=== PATIENT | male | born 1970 | race Caucasian/White ===

== ENCOUNTER 2016-08-26 18:19 | Observation (INO) ==
[2016-08-26] MEDS ORDERED: 0.9 % Sodium Chloride 500 ML IVC ONE (18:22)
--- NOTE | 2016-08-26 18:25 | Emergency Department Note ---
Disposition Clinical Impression: Syncope Qualifiers: Syncope type: unspecified Qualified Code(s): R55 - Syncope and collapse Disposition: Admitted As Inpatient Referrals: NO,PCP [Non-Partnered Physician] - Forms: ED Satisfaction Letter Time of Disposition: 20:41 Syncope HPI - General Chief Complaint: ED Syncope Stated Complaint: syncopal episode Time Seen by Provider: 08/26/16 18:24 Source: patient Mode of arrival: ambulatory Limitations: no limitations Nursing Notes Reviewed: Yes Vital Signs Reviewed: Yes - History of Present Illness HPI Narrative: Patient is a 46-year-old male with past medical history of COPD, chronic low back pain, developmental delay due to rubella infection as a child. He presents today via EMS due to 2 episodes of syncope prior to arrival. EMS states the bystanders witnessed this event and so the patient was unconscious for about 1 minute. Upon awakening, he was having some mild tremors in upper and lower extremity. On presentation, the patient states they he is asymptomatic currently. Denies any chest pain, shortness of breath, belly pain , nausea, vomiting, lightheadedness, dizziness. Denies any injuries when he fell. Denies any neck pain or headache. He states that before he passed out, he just felt weak. One episode occurred when going from sitting to standing, but the second episode was just while patient was standing. - Related Data Home Medications Medication Instructions Recorded Confirmed Aspirin [Adult Low Dose Aspirin EC] 81 mg PO DAILY 10/12/15 06/05/16 Clopidogrel [Plavix] 75 mg PO DAILY 10/12/15 06/05/16 Levothyroxine Sodium [Tirosint] 125 mcg PO DAILY 10/12/15 06/05/16 Metoprolol XL (24 HR) Succ [Toprol 25 mg PO DAILY 10/12/15 06/05/16 Xl] Nitroglycerin 0.4 mg SL Q5MIN PRN 10/12/15 06/05/16 RisperiDONE [Risperdal] 1 mg PO DAILY 10/12/15 06/05/16 Previous Rx's Medication Instructions Recorded Aripiprazole [Abilify] 15 mg PO DAILY #30 tablet 06/05/16 Atorvastatin Calcium [Lipitor] 80 mg PO HS #30 tab 06/05/16 Isosorbide MONOnitrate (24 HR) 60 mg PO DAILY #60 tab.er.24h 06/05/16 [Imdur] Ranolazine [Ranexa] 500 mg PO BID #60 tab.er.12h 06/05/16 Tizanidine HCl [Zanaflex] 4 mg PO Q8H #90 capsule 06/05/16 Allergies Allergy/AdvReac Type Severity Reaction Status Date / Time tramadol [From Ultram] AdvReac Nausea Verified 10/03/15 10:16 Constitutional: Denies: fever Cardiovascular: Denies: chest pain, palpitations Respiratory: Denies: cough, dyspnea, wheezes, hemoptysis Gastrointestinal: Denies: abdominal pain, nausea, vomiting, diarrhea, constipation Musculoskeletal: Reports: back pain. Denies: neck pain Integumentary: Denies: rash Neurological: Denies: headache, weakness, numbness, paresthesias Past Medical History - Past Medical History Attestation: Yes The following information was validated with the patient. Source: patient Medical history: Reports: coronary artery disease, kidney stones, renal disease Psychiatric history: Reports: bipolar, depression - Social History Smoking Status: Current every day smoker Smokeless Tobacco Status: No Alcohol use: Reports: none Drug use: Reports: marijuana Physical Exam - General Limitations: other (developmental delay) - Head Head exam: atraumatic, normocephalic, normal inspection - Eye Eye exam: Present: normal appearance, PERRL, EOMI - ENT ENT exam: normal exam, normal oropharynx, mucous membranes moist - Neck Neck exam: Present: normal inspection, full ROM, trachea midline. Absent: tenderness, meningismus - Chest Chest inspection: Present: normal inspection, symmetric chest wall rise - Respiratory Respiratory exam: Present: wheezes (Bilateral LL) - Cardiovascular Cardiovascular exam: Present: regular rate, normal rhythm, normal heart sounds - Abdominal Exam Abdominal exam: Present: soft, Non-Tender. Absent: tenderness, distention, guarding, rebound, rigidity - Extremities Exam Extremities exam: Present: normal inspection, full ROM. Absent: tenderness, pedal edema - Back Exam Back exam: Present: normal inspection, full ROM. Absent: tenderness - Neurological Exam Neurological exam: Present: alert, oriented X3, CN II-XII intact. Absent: motor sensory deficit - Psychiatric Psychiatric exam: Present: normal affect, normal mood - Skin Skin exam: Present: warm, dry, intact, normal color Course Course Narrative: Physical exam benign. Patient is developmentally delayed. He is not able to answer with full accuracy although review of system and past medical history questions. We will obtain head CT, basic blood work, EKG, troponin, CT of the head. Due to 2 episodes of syncope within a short limited time, we will likely admit for further evaluation. 20:06 d-dimer negative. Troponin negative. CBC and BMP not concerning. Chest x-ray negative for any acute cardiopulmonary pulmonary process. CT the head negative for any acute intracranial abnormality. Patient was reassessed, he is still asymptomatic at this point. BP is 140s/80s. Due to 2 episodes of syncope within a short period of time, we will admit the patient for further observation, cardiac monitoring, possible discussion of carotid duplex for further evaluation. Vital Signs Temperature 98.1 F 08/26/16 18:20 Pulse Rate 80 08/26/16 18:20 Respiratory Rate 18 08/26/16 18:20 Blood Pressure 185/105 08/26/16 18:20 O2 Sat by Pulse Oximetry 92 L 08/26/16 18:20 Temperature 98.1 F 08/26/16 18:20 Pulse Rate 65 08/26/16 20:23 Respiratory Rate 18 08/26/16 20:23 Blood Pressure 155/64 08/26/16 20:23 O2 Sat by Pulse Oximetry 92 L 08/26/16 20:23 Oxygen Delivery Oxygen Delivery Room Air Syncope - [facility] Narrative Medical decision making narrative: Physical exam benign. Patient is developmentally delayed. He is not able to answer with full accuracy although review of system and past medical history questions. We will obtain head CT, basic blood work, EKG, troponin, CT of the head. Due to 2 episodes of syncope within a short limited time, we will likely admit for further evaluation. 20:06 d-dimer negative. Troponin negative. CBC and BMP not concerning. Chest x-ray negative for any acute cardiopulmonary pulmonary process. CT the head negative for any acute intracranial abnormality. Patient was reassessed, he is still asymptomatic at this point. Due to 2 episodes of syncope within a short period of time, we will admit the patient for further observation, cardiac monitoring, possible discussion of carotid duplex for further evaluation. - Medical Records Medical records reviewed: Yes I reviewed the patient's medical records. - Lab Data Lab results reviewed: Yes I reviewed the patient's lab results. Result diagrams: 08/26/16 19:29 08/26/16 19:29 Lab Results 08/26/16 08/26/16 08/26/16 Range/Units 19:29 19:29 19:29 WBC 9.6 (4.3-11.1) K/mcL RBC 5.35 (4.19-5.50) M/mcL Hgb 14.6 (12.9-16.9) g/dL Hct 46.2 (37.5-50.1) % MCV 86.4 (83.0-100.0) fL MCH 27.3 L (28.0-33.3) pg MCHC 31.6 (31.6-35.5) g/dL RDW 15.1 H (11.5-14.5) % Plt Count 176 (140-400) K/mcL MPV 10.7 (9.4-12.4) fL Immature Gran % 0.7 (0-4) % Seg Neutrophils % 76.8 % Lymphocytes % 15.7 % Monocytes % 6.4 % Eosinophils % 0.0 % Basophils % 0.4 % Neutrophils # 7.3 (1.6-8.9) K/mcL Lymphocytes # 1.5 (0.6-4.6) K/mcL Monocytes # 0.6 (0.0-1.3) K/mcL Eosinophils # 0.0 (0.0-0.6) K/mcL Basophils # 0.0 (0.0-0.2) K/mcL Immature Plt Fraction 4.4 (1.1-6.1) % PT 12.0 (9.4-12.1) Seconds INR 1.1 APTT 33.7 (26.0-36.0) Seconds D-Dimer 306 (0-500) ng/mLFEU Sodium 141 (136-145) mEq/L Potassium 4.1 (3.5-4.5) mEq/L Chloride 105 (98-109) mEq/L Carbon Dioxide 28 (19-29) mEq/L BUN 9 (8-26) mg/dL Creatinine 1.08 (0.72-1.25) mg/dL Est GFR ( Amer) > 60 (> 60) Est GFR (Non-Af Amer) > 60 (> 60) BUN/Creatinine Ratio 8 (6-26) Glucose 94 (70-99) mg/dL Calculated Osmolality 290 (280-300) Calcium 8.6 (8.6-10.8) mg/dL Total Bilirubin 0.5 (0.2-1.2) mg/dL AST 16 (5-34) Units/L ALT 14 (0-55) Units/L Alkaline Phosphatase 72 (38-126) Units/L Troponin I (0-0.03) ng/mL B-Natriuretic Peptide (0-100) pg/mL Serum Total Protein 6.6 (6.0-8.3) g/dL Albumin 3.4 L (3.5-5.0) g/dL Globulin 3.2 (2.4-3.5) g/dL Albumin/Globulin Ratio 1.1 (1.1-2.2) 08/26/16 08/26/16 Range/Units 19:29 19:29 WBC (4.3-11.1) K/mcL RBC (4.19-5.50) M/mcL Hgb (12.9-16.9) g/dL Hct (37.5-50.1) % MCV (83.0-100.0) fL MCH (28.0-33.3) pg MCHC (31.6-35.5) g/dL RDW (11.5-14.5) % Plt Count (140-400) K/mcL MPV (9.4-12.4) fL Immature Gran % (0-4) % Seg Neutrophils % % Lymphocytes % % Monocytes % % Eosinophils % % Basophils % % Neutrophils # (1.6-8.9) K/mcL Lymphocytes # (0.6-4.6) K/mcL Monocytes # (0.0-1.3) K/mcL Eosinophils # (0.0-0.6) K/mcL Basophils # (0.0-0.2) K/mcL Immature Plt Fraction (1.1-6.1) % PT (9.4-12.1) Seconds INR APTT (26.0-36.0) Seconds D-Dimer (0-500) ng/mLFEU Sodium (136-145) mEq/L Potassium (3.5-4.5) mEq/L Chloride (98-109) mEq/L Carbon Dioxide (19-29) mEq/L BUN (8-26) mg/dL Creatinine (0.72-1.25) mg/dL Est GFR ( Amer) (> 60) Est GFR (Non-Af Amer) (> 60) BUN/Creatinine Ratio (6-26) Glucose (70-99) mg/dL Calculated Osmolality (280-300) Calcium (8.6-10.8) mg/dL Total Bilirubin (0.2-1.2) mg/dL AST (5-34) Units/L ALT (0-55) Units/L Alkaline Phosphatase (38-126) Units/L Troponin I 0.00 (0-0.03) ng/mL B-Natriuretic Peptide 26 (0-100) pg/mL Serum Total Protein (6.0-8.3) g/dL Albumin (3.5-5.0) g/dL Globulin (2.4-3.5) g/dL Albumin/Globulin Ratio (1.1-2.2) - Radiology Data Radiology results reviewed: Yes I reviewed the patient's radiology results. Chest X-Ray 08/26/16 18:22 IMPRESSION: 1. No active pulmonary disease. D/ / Tato Avelar MD / Tato Avelar MD Interpreting Provider: Tato Avelar MD Head CT 08/26/16 18:23 IMPRESSION: No acute intracranial abnormality. D/ / Jef Moore MD / Jef Moore MD Interpreting Provider: Jef Moore MD - EKG Data EKG attestation: Yes I reviewed and interpreted this EKG. EKG results narrative: 08/26/16 at 18:25. EKG shows normal sinus rhythm. Normal axis. Rate 75. QTC 440. QRS 101. No acute ST elevation or depression. No acute changes from previous EKG on 06/05/16 S.B.A.R. - S.B.A.R. Situation: Demographics, MOA Background: Presenting Complaint, Relevant PMH, Meds, & Allergies Assessment: Vital Signs, Course and respsone to treatment, Exam Concerns, Patient/Family Expectation, Pertinant Lab Results, Outstanding Labs Recommendation: Barrier(s) to disposition, Recommendation based on pending studies, treatments, or consults Luke Report Given to: Dr. Talon Butler Repor Time: 20:41 Attestation Statement - Attestation Attestation: Patient was seen with resident physician. I reviewed the history, physical, assessment and plan, and agree with the findings. I also personally evaluated this patient and had [id number] time with this patient. 46-year-old male presents to the emergency department with 2 syncopal episodes. Second one was witnessed by some bystanders at the [facility] where he lives. According to EMS he was out for approximately 1 minute. It was not clear if he fell from a standing position or not. Patient himself states he does not really remember what happened. He has not had any chest pain or shortness of breath. And denies symptoms at this time. Past medical history includes some development delay and chronic back pain. There is no cardiac history that we can ascertain. On examination ENT is normocephalic atraumatic. Heart is normal. Lungs some mild wheezing throughout. Abdomen is soft and nontender. Extremities are unremarkable. We will do a syncopal workup on this patient and admit it concerning that he said 2 syncopal episodes in rapid succession. A D stick was done via EMS and it was over 100. Patient himself is asymptomatic at the time of arrival. Workup was essentially negative, patient remained hemodynamically stable, but will need to admit for further evaluation and treatment as well as cardiac monitoring for his syncopal episodes. I agree with the resident physician assessment and plan.
[2016-08-26 19:36] LABS: Basophils % 0.4 %; Hematocrit 46.2 % (37.5-50.1); Hemoglobin 14.6 g/dL (12.9-16.9); Immature Granulocytes % 0.7 % (0-4); Immature Platelets 4.4 % (1.1-6.1); Lymphocytes # 1.5 K/mcL (0.6-4.6); Lymphocytes % 15.7 %; Mean Corpuscular HGB Conc 31.6 g/dL (31.6-35.5); Mean Corpuscular Hemoglobin 27.3 pg (28.0-33.3); Mean Corpuscular Volume 86.4 fL (83.0-100.0); Mean Platelet Volume 10.7 fL (9.4-12.4); Monocytes # 0.6 K/mcL (0.0-1.3); Monocytes % 6.4 %; Neutrophils # 7.3 K/mcL (1.6-8.9); Platelet Count 176 K/mcL (140-400); Red Blood Count 5.35 M/mcL (4.19-5.50); Red Cell Distribution Width 15.1 % (11.5-14.5); Segmented Neutrophils % 76.8 %
[2016-08-26 19:43] LABS: INR 1.1
[2016-08-26 19:46] LABS: Activated Partial Thrombo Time 33.7 Seconds (26.0-36.0)
[2016-08-26 19:50] LABS: Alanine Aminotransferase 14 Units/L (0-55); Albumin 3.4 g/dL (3.5-5.0); Albumin/Globulin Ratio 1.1 (1.1-2.2); Alkaline Phosphatase 72 Units/L (38-126); Aspartate Amino Transferase 16 Units/L (5-34); BUN/Creatinine Ratio 8 (6-26); Bilirubin,Total 0.5 mg/dL (0.2-1.2); Blood Urea Nitrogen 9 mg/dL (8-26); Calcium 8.6 mg/dL (8.6-10.8); Carbon Dioxide 28 mEq/L (19-29); Chloride 105 mEq/L (98-109); Globulin 3.2 g/dL (2.4-3.5); Glucose 94 mg/dL (70-99); Osmolality,Calculated 290 (280-300); Potassium 4.1 mEq/L (3.5-4.5); Sodium 141 mEq/L (136-145); Total Protein 6.6 g/dL (6.0-8.3); eGFR For African Americans > 60 (> 60); eGFR For Non-African Americans > 60 (> 60)
[2016-08-27] MEDS ORDERED: Acetaminophen 325 MG TABLET PO PRN (00:20)
[2016-08-27] MEDS ORDERED: Naloxone 0.4 MG/ML INJ IVP PRN (00:20)
[2016-08-27] MEDS ORDERED: tiZANidine 4 MG TABLET PO PRN (00:27)
--- NOTE | 2016-08-27 00:34 | Internal Med History&Physical ---
Date of Encounter: 08/27/16 Time of Encounter: 00:30 Assessment and Plan (1) Syncope Current visit: Yes Status: Acute 1. Will order ECHO, Carotid Dopplers, serial troponins, and EKG's. 2. If above negative, consider stress test and/or cardiology consult given recent history of RCA occlusion/known CAD. 3. Hold anti-psychotic medications for concerns of possible QT prolongation. Note: QTc on today's EKG is normal (440 ms). 4. Monitor glucose levels for possible hypoglycemia. Qualifiers: Syncope type: unspecified Qualified Code(s): R55 - Syncope and collapse (2) CAD (coronary artery disease) Current visit: No Status: Chronic 1. Continue home meds as appropriate. 2. Cycle troponins and order ECHO. 3. No history to suggest angina other than syncope. Qualifiers: Coronary Disease-Associated Artery/Lesion type: [place] artery [place] vs. transplanted heart: [place] heart Associated angina: with stable angina Qualified Code(s): I25.118 - Atherosclerotic heart disease of [place] coronary artery with other forms of angina pectoris (3) DVT prophylaxis Current visit: Yes Status: Acute 1. Heparin SQ. Internal Medicine - H&P: HPI Chief complaint: syncope Admitted From: Emergency Dept Plans for Post Hospital Care: Home History of present illness: Mr. Rios is a 46 year old male who presents to the ER today after having had 2 syncopal spells at home. One spell was reportedly witnessed by his friend and neighbor. Patient states he had some tremors but no reported seizure activity. Workup was negative in the ER, and he was admitted to the hospitalist service. Upon my assessment of the patient, he feels back to baseline. He denies any chest pain, shortness of breath, shakes, or jitters now. He denies any history of seizure disorder. He is not diabetic. He does have a history of 100% occlusion of his RCA. He had unsuccessful PTCA of his right coronary artery last spring. He denies any symptoms of angina since then, including today. Of note, he is on several antipsychotic medications which may put him at increased risk of QT prolongation. Past Med Surg Social Fam HX - Past Medical History Attestation: Yes The following information was validated with the patient. Source: patient, old records reviewed Medical history: coronary artery disease, kidney stones, renal disease Psychiatric history: bipolar, depression - Past Surgical History Surgical History: thyroidectomy, other (LHC with unsuccessful PTCA of RCA) - Social History Smoking Status: Current every day smoker Smokeless Tobacco Status: No Alcohol use: none Drug use: marijuana Current living situation: Home, With Family Activity Level: Independent ambulation Recent Out of Country Travel Within the Last 8 Weeks: No - Family History Mother Living Status: Cause of : cancer Hx Family Cancer: Yes (pancreatic) Hx Family Psychosocial Disorders: (Depression) Father Hx Family Endocrine Disorder: Yes (DM) Internal Medicine - H&P: Meds Aspirin [Adult Low Dose Aspirin EC] 81 mg PO DAILY 10/12/15 [History] Clopidogrel [Plavix] 75 mg PO DAILY 10/12/15 [History] Levothyroxine Sodium [Tirosint] 125 mcg PO DAILY 10/12/15 [History] Metoprolol XL (24 HR) Succ [Toprol Xl] 25 mg PO DAILY 10/12/15 [History] Nitroglycerin 0.4 mg SL Q5MIN PRN 10/12/15 [History] RisperiDONE [Risperdal] 1 mg PO DAILY 10/12/15 [History] Aripiprazole [Abilify] 15 mg PO DAILY #30 tablet 06/05/16 [Rx] Atorvastatin Calcium [Lipitor] 80 mg PO HS #30 tab 06/05/16 [Rx] Isosorbide MONOnitrate (24 HR) [Imdur] 60 mg PO DAILY #60 tab.er.24h 06/05/16 [ Rx] Ranolazine [Ranexa] 500 mg PO BID #60 tab.er.12h 06/05/16 [Rx] Tizanidine HCl [Zanaflex] 4 mg PO Q8H #90 capsule 06/05/16 [Rx] Allergies tramadol [From Ultram] Adverse Reaction (Verified 10/03/15 10:16) Nausea - Constitutional Constitutional: no chills, no fever(s) - EENT Eyes: no blurry vision, no change in vision Ears: no decreased hearing, no ear pain, no tinnitus Nose, mouth and throat: no nasal congestion, no sinus pressure, no sore throat - Cardiovascular Cardiovascular ROS IM: syncope, no chest pain, no dyspnea, no dyspnea on exertion, no edema, no lightheadedness, no orthopnea, no palpitations - Respiratory Respiratory: no cough, no hemoptysis, no dyspnea on exertion, no wheezing - Gastrointestinal Gastrointestinal: no diarrhea, no hematemesis, no hematochezia, no melena, no nausea, no vomiting - Genitourinary Genitourinary ROS male: no dysuria, no flank pain, no hematuria - Musculoskeletal Musculoskeletal ROS IM: back pain, no arthralgias - Integumentary Integumentary IM: no rash, no unusual bruising, no jaundice - Neurological Neurological ROS: no disequilibrium, no dizziness, no focal weakness, no frequent falls - Psychiatric Psychiatric: no anxiety, no depression - Endocrine Endocrine IM: no cold intolerance, no heat intolerance, no polydipsia, no polyuria - Hematologic/Lymphatic Hematologic/Lymphatic: no easy bruising, no lymphadenopathy - Allergic/Immunologic Allergic/Immunologic: no wheezing, no GI upset with certain foods - Constitutional Vitals: Temp Pulse Resp BP Pulse Ox 98.3 F 67 18 160/95 94 L 08/26/16 21:35 08/26/16 21:35 08/26/16 21:35 08/26/16 21:35 08/26/16 22:53 General appearance: Present: cooperative, A&O X 3, pleasant, no acute distress, answers questions appropriately - Head Head exam: Present: atraumatic, normal inspection - Expanded Head Exam Head exam expanded: Absent: abrasion, Shaikh's sign, contusion, general tenderness, hematoma - Eye Eye exam: Present: EOMI, normal appearance, PERRL. Absent: scleral icterus Pupils: Present: normal accommodation - ENT ENT exam: Present: mucous membranes moist, normal exam, normal oropharynx - Neck Neck exam general surgery: Present: full ROM, normal inspection, supple. Absent : lymphadenopathy, nuchal rigidity, thyromegaly - Expanded Neck Exam Neck exam: Absent: carotid bruit - Respiratory Respiratory exam: Present: CTAB. Absent: chest wall tenderness, rales, respiratory distress, rhonchi, wheezes - Cardiovascular Cardiovascular exam: Present: RRR, +S1, +S2, systolic murmur (grade 2). Absent : diastolic murmur - GI/Abdominal GI/Abdominal exam: Present: normal bowel sounds, soft. Absent: hepatomegaly, mass, splenomegaly, tenderness - Extremities Exam Extremities exam: Present: full ROM, normal capillary refill, warm. Absent: calf tenderness, joint swelling, pedal edema - Back Exam Back exam: Present: normal inspection. Absent: CVA tenderness (L), CVA tenderness (R) - Neurological Exam Neurological exam: Present: alert, CN II-XII intact, oriented X3, no focal deficits, strengths equal and symetr throughout - Psychiatric Psychiatric exam: Present: normal affect, normal mood - Skin Skin exam: Present: dry, warm. Absent: rash Internal Med - H&P Results - Labs CBC & Chem 7: 08/26/16 19:29 08/26/16 19:29 - EKG Data -: EKG Interpreted by Myself EKG shows normal: sinus rhythm Rate: normal - EKG Data Prior EKG available for review: yes When compared to previous EKG: there is no significant change EKG comments: 08/27/16 00:49 NSR; normal; unchanged - Diagnostic Studies Chest x-ray Status: image reviewed by me (negative)
[2016-08-27] MEDS: *HR* Heparin 5,000 UNIT/ML VIAL SQ SCH ×3 (01:07→18:38)
[2016-08-27] MEDS: 0.9 % Sodium Chloride 1,000 ML IVC SCH ×2 (01:07→12:54)
[2016-08-27 01:19] LABS: Basophils % 0.4 %; Hematocrit 46.5 % (37.5-50.1); Hemoglobin 14.7 g/dL (12.9-16.9); Immature Granulocytes % 0.7 % (0-4); Lymphocytes # 2.2 K/mcL (0.6-4.6); Lymphocytes % 23.4 %; Mean Corpuscular HGB Conc 31.6 g/dL (31.6-35.5); Mean Corpuscular Hemoglobin 27.1 pg (28.0-33.3); Mean Corpuscular Volume 85.6 fL (83.0-100.0); Mean Platelet Volume 10.8 fL (9.4-12.4); Monocytes # 0.7 K/mcL (0.0-1.3); Monocytes % 7.6 %; Neutrophils # 6.5 K/mcL (1.6-8.9); Platelet Count 175 K/mcL (140-400); Red Blood Count 5.43 M/mcL (4.19-5.50); Red Cell Distribution Width 15.2 % (11.5-14.5); Segmented Neutrophils % 67.9 %
[2016-08-27 01:35] LABS: Alanine Aminotransferase 13 Units/L (0-55); Albumin 3.1 g/dL (3.5-5.0); Alkaline Phosphatase 65 Units/L (38-126); Aspartate Amino Transferase 16 Units/L (5-34); BUN/Creatinine Ratio 10 (6-26); Bilirubin,Total 0.4 mg/dL (0.2-1.2); Blood Urea Nitrogen 10 mg/dL (8-26); Calcium 8.3 mg/dL (8.6-10.8); Carbon Dioxide 25 mEq/L (19-29); Chloride 109 mEq/L (98-109); Chol/HDL Ratio 2.6 (0-4.9); Cholesterol 86 mg/dL (< 200); Globulin 3.1 g/dL (2.4-3.5); Glucose 121 mg/dL (70-99); HDL Cholesterol 33 mg/dL (40-59); LDL Cholesterol,Calculated 31 mg/dL (0-99); Magnesium 1.8 mg/dL (1.6-2.6); Osmolality,Calculated 294 (280-300); Potassium 3.7 mEq/L (3.5-4.5); Sodium 142 mEq/L (136-145); Total Protein 6.2 g/dL (6.0-8.3); Triglycerides 108 mg/dL (< 150); eGFR For African Americans > 60 (> 60); eGFR For Non-African Americans > 60 (> 60)
[2016-08-27] MEDS: Ranolazine 500 MG TAB.ER.12H PO SCH ×2 (10:08→20:40)
[2016-08-27] MEDS: Isosorbide MONOnitrate (24 HR) 60 MG TAB.ER.24H PO SCH (10:08)
[2016-08-27] MEDS: Aspirin Enteric Coated 81 MG Tablet PO SCH (10:09)
--- NOTE | 2016-08-27 10:16 | Internal Med Progress Note ---
Date of Encounter: 08/27/16 Time of Encounter: 09:30 - Assessment and plan (1) Syncope Current Visit: Yes Status: Acute Assessment and plan: Patient alert and oriented 3 and asymptomatic on examination. Chest x-ray negative. Head CT negative. Carotid and echo still pending. Tox screen also pending. In discussing with the patient, he was started on Imdur couple months ago and his Ranexa dosage was increased last week. His syncopal episodes are likely medication related. We will also obtain orthostatic vital signs. We will bring cardiology on board for their appreciation of medications and any changes that may be indicated. ITS Impressions Chest X-Ray 08/26/16 18:22 IMPRESSION: 1. No active pulmonary disease. D/ / Tato Avelar MD / Tato Avelar MD Interpreting Provider: Tato Avelar MD Head CT 08/26/16 18:23 IMPRESSION: No acute intracranial abnormality. D/ / Jef Moore MD / Jef Moore MD Interpreting Provider: Jef Moore MD Qualifiers: Syncope type: unspecified Qualified Code(s): R55 - Syncope and collapse (2) Mental retardation Current Visit: Yes Status: Chronic Assessment and plan: Patient was able to understand plan of care and answer questions appropriately regarding his medication and recent changes to his medications. (3) S/P thyroidectomy Current Visit: Yes Status: Chronic Assessment and plan: TSH checked in June 2016, normal (4) DVT prophylaxis Current Visit: Yes Status: Acute Assessment and plan: Subcutaneous heparin (5) CAD (coronary artery disease) Current Visit: No Status: Chronic Assessment and plan: Patient is stating that he was recently started on Imdur a couple months ago and he also states he saw Dr. Headley last week who increased his Ranexa to "help with the clot in my leg." Patient's syncopal episodes are likely due to medication changes, will bring cardiology on board for medication titration at their discretion. Patient currently denies chest pain or shortness of breath. Qualifiers: Coronary Disease-Associated Artery/Lesion type: [place] artery [place] vs. transplanted heart: [place] heart Associated angina: with stable angina Qualified Code(s): I25.118 - Atherosclerotic heart disease of [place] coronary artery with other forms of angina pectoris (6) Obesity (BMI 30.0-34.9) Current Visit: No Status: Chronic - Subjective Interval history: Patient seen and examined. On examination, patient initially asleep and awaken easily to voice. Alert and oriented 3. Currently denies pain, shortness of breath, dizziness or lightheadedness. Patient stating he is eating well and denies concerns at this time. He does have several questions regarding his recent medication changes. - Constitutional Vitals: Temp Pulse Resp BP Pulse Ox 97.7 F 69 24 150/87 95 08/27/16 07:52 08/27/16 07:52 08/27/16 07:52 08/27/16 07:52 08/27/16 07:52 General appearance: Present: cooperative, A&O X 3, pleasant, no acute distress, answers questions appropriately - Head Head exam: Present: atraumatic, normocephalic - Eye Eye exam: Present: PERRL, conjuntiva pink, sclera anicteric Pupils: Present: PERRL - Neck Neck exam general surgery: Present: supple, trachea midline. Absent: lymphadenopathy - Respiratory Respiratory exam: Present: decreased breath sounds. Absent: accessory muscle use, rales, respiratory distress, rhonchi, wheezes - Cardiovascular Cardiovascular exam: Present: RRR, +S1, +S2. Absent: diastolic murmur, gallop, rubs, systolic murmur - GI/Abdominal GI/Abdominal exam: Present: normal bowel sounds, soft, no peritoneal signs. Absent: distended, tenderness - Extremities Exam Extremities exam: Present: warm, radial pulses palpable and symetrical. Absent : calf tenderness, cyanotic, pedal edema - Neurological Exam Neurological exam: Present: alert, CN II-XII intact, oriented X3, no focal deficits, strengths equal and symetr throughout. Absent: pronater drift, facial droop, speech deficit - Skin Skin exam: Present: dry, intact, pallor, warm Internal Medicine: Result - Labs CBC & Chem 7: 08/27/16 00:56 08/27/16 00:56 Labs: Short CBC 08/27/16 Range/Units 00:56 WBC 9.6 (4.3-11.1) K/mcL Hgb 14.7 (12.9-16.9) g/dL Hct 46.5 (37.5-50.1) % Plt Count 175 (140-400) K/mcL Neutrophils # 6.5 (1.6-8.9) K/mcL BMP 08/27/16 00:56 Sodium 142 Potassium 3.7 Chloride 109 Carbon Dioxide 25 BUN 10 Creatinine 1.02 Glucose 121 H Calcium 8.3 L Cardiac Enzymes 08/27/16 08/27/16 Range/Units 00:56 08:12 Troponin I 0.00 0.01 (0-0.03) ng/mL Liver Function 08/27/16 Range/Units 00:56 Total Bilirubin 0.4 (0.2-1.2) mg/dL AST 16 (5-34) Units/L ALT 13 (0-55) Units/L Alkaline Phosphatase 65 (38-126) Units/L Albumin 3.1 L (3.5-5.0) g/dL - ABG Interpretation ABG results: PT/INR, D-dimer PT 12.0 Seconds (9.4-12.1) 08/26/16 19:29 D-Dimer 306 ng/mLFEU (0-500) 08/26/16 19:29 Consult Discharge Plan - Plan Referrals: Marybeth Myers MD [Primary Care Provider] - 09/05/16 10:45 am
[2016-08-27 12:58] LABS: Bilirubin,Urine Negative (Negative); Blood,Urine Negative (Negative); Clarity,Urine Clear (Clear); Color,Urine Yellow (Yellow); Glucose,Urine (UA) Normal (Normal); Ketones,Urine Negative (Negative); Leukocyte Esterase,Urine Negative (Negative); Nitrite,Urine Negative (Negative); Protein,Urine Negative (Neg-Trace); Specific Gravity,Urine 1.008 (1.010-1.025); Urobilinogen,Urine Normal (Normal)
[2016-08-27 13:03] LABS: Amphetamine Screen,Urine Negative ng/mL (Cutoff=1000); Barbiturate Screen,Urine Negative ng/mL (Cutoff=200); Benzodiazepines Screen,Urine Negative ng/mL (Cutoff=200); Cannabinoid Screen,Urine Positive ng/mL (Cutoff = 50); Cocaine Screen,Urine Negative ng/mL (Cutoff= 300); Opiate Screen,Urine Negative ng/mL (Cutoff=300); Phencyclidine Screen,Urine Negative ng/mL (Cutoff=25)
--- NOTE | 2016-08-27 14:22 | Cardiology Consult Note ---
Date of Encounter: 08/27/16 Time of Encounter: 15:00 Assessment and Plan (1) Syncope Current Visit: Yes Status: Acute Per cardiology: -Patient with apparent syncopal episode at home. Patient states that he "passed out for a second." Patient states he has had episodes of dizziness in the past several months. -BPs have been stable with BPs since admission 120-150s systolic. 24 hour telemetry reviewed with no significant events noted. Orthostatic blood pressures obtained and are stable. -Echocardiogram ordered and has been completed, results are pending. -Carotid duplex ordered and has been completed, results are pending. -Further recommendations once testing has been resulted. Qualifiers: Syncope type: unspecified Qualified Code(s): R55 - Syncope and collapse (2) History of coronary artery disease Current Visit: Yes Status: Chronic Per cardiology: -Patient known history of CAD with previous stenting. Cardiac catheterization showed RCA 100% RN PSYCH with unsuccessful PTCA, LAD mild disease, 1st diagonal mild disease, mid circumflex 50-60% stenosis. Patient denies chest pain. Patient states compliance with plavix, aspirin, ranexa, imdur. Patient states he does not tolerate beta roberto and susanna inhibitor. Patient states he has tried several varieties in the past, but does not tolerate them. -No further ischemic evaluation needed at this time due to chest pain free and troponins negative x3. -Further recommendations once echocardiogram resulted. (3) Smoking Current Visit: Yes Status: Chronic Per cardiology: -Patient is a known smoker of a pack per day for 30 years. -Smoking cessation given. Discussion w patient/family: The assessment and plan as outlined above was discussed with the patient who expressed understanding and agreement. All questions were answered. Thank you for involving us in the care of your patient. Please call with any questions. Patient was discussed and reviewed with Dr.John Arroyo. History of Present Illness Consult date: 08/27/16 Requesting physician: Chely Rodriguez Consult reason: syncope Chief complaint: syncope History of present illness: Mr. Rios is a 46 year old male who presented to the ER with apparent syncopal episode at home. Patient states he "passed out for a second." Patient states after episode he had to be helped to a chair by friends. Patient states he has been having episodes of dizziness for several months. Patient states he was recently placed on imdur 60mg PO daily by . Patient states since the admission of this medication, he has been feeling dizzy. Patient states he does not take his blood pressure at home, but when he comes to doctors appointments, his BP has been running 120-130 systolic and 60-70 diastolic. Past Med Surg Social Fam HX - Past Medical History Medical history: coronary artery disease, kidney stones, renal disease Psychiatric history: bipolar, depression - Past Surgical History Surgical History: thyroidectomy, other (LHC with unsuccessful PTCA of RCA) - Social History Smoking Status: Current every day smoker Smokeless Tobacco Status: No Alcohol use: none Drug use: marijuana - Family History Mother Living Status: Cause of : cancer Hx Family Cancer: Yes (pancreatic) Hx Family Psychosocial Disorders: (Depression) Father Hx Family Endocrine Disorder: Yes (DM) Medications and Allergies Aspirin [Adult Low Dose Aspirin EC] 81 mg PO DAILY 10/12/15 [History] Clopidogrel [Plavix] 75 mg PO DAILY 10/12/15 [History] Levothyroxine Sodium [Tirosint] 125 mcg PO DAILY 10/12/15 [History] Nitroglycerin 0.4 mg SL Q5MIN PRN 10/12/15 [History] RisperiDONE [Risperdal] 1 mg PO HS 10/12/15 [History] Aripiprazole [Abilify] 15 mg PO DAILY #30 tablet 06/05/16 [Rx] Atorvastatin Calcium [Lipitor] 80 mg PO HS #30 tab 06/05/16 [Rx] Isosorbide MONOnitrate (24 HR) [Imdur] 60 mg PO DAILY #60 tab.er.24h 06/05/16 [ Rx] Tizanidine HCl [Zanaflex] 4 mg PO Q8H #90 capsule 06/05/16 [Rx] Benztropine [Cogentin] 1 mg PO HS 08/27/16 [History] Ranitidine HCl [Heartburn Relief] 150 mg PO BID 08/27/16 [History] Ranolazine [Ranexa] 1,000 mg PO BID 08/27/16 [History] Allergies tramadol [From Ultram] Adverse Reaction (Verified 10/03/15 10:16) Nausea All Systems Review: A 10-system review of systems was performed and is negative for pertinent findings except as documented above in the HPI. - Cardiovascular Cardiovascular: syncope Physical Examination Vital Signs, Last 4 Hours Temp Pulse Pulse Pulse Pulse Resp BP 08/27/16 11:09 61 65 76 08/27/16 11:07 97.9 F 62 18 125/79 BP BP BP Pulse Ox 08/27/16 11:09 124/78 132/78 125/79 08/27/16 11:07 96 General: Conversant, No Apparent Distress HEENT: Atraumatic, Normocephaly, Mucus Membranes Moist Neck: No JVD, Normal carotid pulses Cardiac: Reg Rate and Rhythm, Normal S1 and S2, No Murmur Lungs: Normal Breath Sounds Neuro: Alert and responsive Abdomen: Soft, Non-Tender Skin: No rashes noted on visualized skin Extremities: No Clubbing, No Cyanosis, Other (mild non-pitting pedal edema noted to bilateral lower extremities. ) Results 08/27/16 00:56 08/27/16 00:56 Lab Results 08/27/16 08/27/16 08/27/16 00:56 00:56 00:56 WBC 9.6 Hgb 14.7 Hct 46.5 Plt Count 175 Sodium 142 Potassium 3.7 Chloride 109 Carbon Dioxide 25 BUN 10 Creatinine 1.02 Glucose 121 H Calcium 8.3 L Magnesium 1.8 Total Bilirubin 0.4 AST 16 ALT 13 Alkaline Phosphatase 65 Troponin I 0.00 08/27/16 08:12 WBC Hgb Hct Plt Count Sodium Potassium Chloride Carbon Dioxide BUN Creatinine Glucose Calcium Magnesium Total Bilirubin AST ALT Alkaline Phosphatase Troponin I 0.01 - Imaging and Cardiology Chest Xray: report reviewed Echo: pending Other Results: Carotid duplex pending. CT head reviewed. - EKG Interpretation EKG results cardiology: personally reviewed, normal ECG, sinus rhythm, other ( 24 hour telemetry reviewed with average HR 65. Lowest heart rate 42 at 0512. No significant events noted per telemetry.) Consult Discharge Plan - Plan Referrals: Marybeth Myers MD [Primary Care Provider] - 09/05/16 10:45 am
--- NOTE | 2016-08-27 15:37 | ECHO - Doppler Report ---
Echocardiogram Name: Kalia Rios Date of Study: 08/27/2016 Date: 1970 Ht: 63.0 in Medical Record#: [id number] Age: 46 Wt: 189.0 lb Gender: Male BSA: 1.89 Order #: [id number] Location: [facility] Room #: 3B45 Reading Physician: Marcie Barajas DO Pole Setter: Nikki Tracy RVT Ordering Physician: Bala Cardenas MD Primary Physician: Marybeth Myers MD Indications: Syncope Impressions: LVEF 60%. Normal left ventricular size and systolic function. There is evidence of mild diastolic dysfunction of the left ventricle. Normal right ventricular size and function. No significant valvular dysfunction. No pulmonary hypertension. Left Ventricular Wall Motion: Rest Echo Findings All wall segments showed normal motion. Findings: Study Quality * Technically adequate exam. ECG Findings * Normal sinus rhythm. Left Ventricle * Normal LV chamber size, wall thickness and function. * Mild left ventricular diastolic dysfunction. * LVEF 60%. Left Atrium * Normal left atrial size. Mitral Valve * Normal mitral valve structure. * No mitral stenosis. * No mitral regurgitation. Aortic Valve * No aortic regurgitation. * Aortic valve not well visualized. * No aortic stenosis. Tricuspid Valve * Tricuspid valve not well visualized. * No tricuspid regurgitation. * Estimated RA pressure is 3 mmHg. Pulmonic Valve * Pulmonic valve is not well visualized. * No pulmonic stenosis. * No pulmonic regurgitation. Pulmonary Artery * Pulmonary artery not well visualized. Right Ventricle * Normal right ventricular structure and function. Right Atrium * Normal right atrial size. Interatrial Septum * Lipomatous interatrial septum. IVC * Normal IVC dimensions and inspiratory collapse. Pericardium * There is no pericardial effusion present. Aorta * Not well visualized. History Hypercholesteremia Family History of CAD History of CAD/PTCA Myocardial Infarction Measurements: BP: 146/ 68 2D Normal Values IVSd: 1.00 cm 0.6 - 1.0 cm LVIDd: 5.00 cm 3.7 - 5.6 cm LVPWd: .70 cm 0.6 - 1.1 cm LVIDs: 4.00 cm 1.5 - 3.6 cm AO: 2.50 cm < 4.0 cm LA: 3.50 cm 2.0 - 4.0cm %FS: 20.00 cm >25 % LA volume: 59 Mitral Valve Peak E:.95 m/sec Peak A:1.15 m/sec E/A Ratio:0.8 Peak E' Lat Girish:8.68 cm/s Peak E' Med Girish:7.12 cm/s E/E' Lat Ratio:11 E/E' Med Ratio:13.4 Tricuspid Valve TV Regurg Peak Grad: 5.00mmHg TV Regurg Peak Girish: 1.11m/sec Updated by Marcie Barajas on 08/27/2016 3:29:53 PM electronically signed on 08/27/2016 3:31:46 PM with status of Final Wall Motion Gross: 1=Normal, 2=Hypokinesis, 3=Akinesis, 4=Dyskinesis, 5=Aneurysmal, 6=Hyperkinetic, X=Not Visualized (Blank)=Missing
--- NOTE | 2016-08-27 16:11 | Carotid Imaging Report ---
Carotid Duplex Patient Name:Kalia Rios Order Number:[id number] Procedure Date:08/27/2016 Date:1970Age:46 yrs Gender:Male Height: cm / inWeight:85.73 kg / 189.00 lb Lt BP:146 / 68 mmHg Rt.BP:144 / 72 mmHgHeart Rate: Location:[facility] Room #: #B45 Content Curator:Nikki Tracy RVT Referring MD:Bala Cardenas MD caretaker resort:Marybeth Myers MD Reading MD:Antonio Franks MD , FACS Primary Indications:Syncope Risk Factors Yes/No Hypercholesterolemia Yes Smoking Current Yes Family History Yes Impressions: Findings: Bilateral carotid systems have nonstenotic plaque. Findings Carotid Duplex: Right: There is nonstenotic plaque in the right bifurcation. There is smooth, heterogeneous calcified plaque. There is nonstenotic plaque in the right proximal internal carotid artery. There is smooth, heterogeneous calcified plaque. There is nonstenotic plaque in the right mid internal carotid artery. There is smooth heterogeneous plaque. There is nonstenotic plaque in the right eca. There is smooth, heterogeneous calcified plaque. Left: There is nonstenotic plaque in the left bifurcation. There is smooth, heterogeneous calcified plaque. There is nonstenotic plaque in the left proximal internal carotid artery. There is smooth homogeneous plaque. There is nonstenotic plaque in the left eca. There is smooth homogeneous plaque. Prior Study: No prior study available for comparison. Carotid Results Right PSV EDV Assessment Proximal CCA 119 16 Normal Mid CCA 120 14 Normal Distal CCA 114 16 Normal Bifurcation 99 13 Non Stenotic Plaque Proximal ICA 61 13 Non Stenotic Plaque Mid ICA 106 33 Non Stenotic Plaque Distal ICA 95 21 Normal ECA 155 21 Non Stenotic Plaque Vertebral Artery 68 13 Antegrade Flow Left PSV EDV Assessment Proximal CCA 132 14 Normal Mid CCA 117 26 Normal Distal CCA 105 16 Normal Bifurcation 80 18 Non Stenotic Plaque Proximal ICA 62 24 Non Stenotic Plaque Mid ICA 106 38 Normal Distal ICA 87 31 Normal ECA 116 87 Non Stenotic Plaque Vertebral Artery 43 11 Antegrade Flow Ratio's Right ICA/CCA Ratio: 0.08 ICA/CCA Values: 106/120 Left ICA/CCA Ratio: 0.90 ICA/CCA Values: 106/117 Updated by Antonio Franks MD, FACS on 08/27/2016 4:07:09 PM Antonio Franks MD electronically signed on 08/27/2016 4:07:44 PM with status of Final
--- NOTE | 2016-08-27 17:40 | Electrocardiograph Report ---
[address] [place], [place] [address] Test Date: 2016-08-26 Pat Name: Kalia Rios Department: 104 Room: 3B45 Gender: M Rn Document Improvement Specialist: : 1970 Requested By: Troy Stuart Order Number: [id number] Reading MD: Marcie Barajas Measurements Intervals [place] Rate: 75 P: 63 HI: 196 QRS: 41 QRSD: 101 T: 45 QT: 411 QTc: 440 Interpretive Statements SINUS RHYTHM Electronically Signed On 08-27-2016 17:38:41 EST by Marcie Barajas
[2016-08-28] MEDS: 0.9 % Sodium Chloride 1,000 ML IVC SCH (03:54)
[2016-08-28] MEDS: *HR* Heparin 5,000 UNIT/ML VIAL SQ SCH (06:26)
[2016-08-28 07:45] VITALS: BP 123/71
--- NOTE | 2016-08-28 08:54 | Cardiology Progress Note ---
Date of Encounter: 08/28/16 Time of Encounter: 08:30 Assessment and Plan (1) Syncope Current Visit: Yes Status: Acute Per cardiology: -Patient with apparent syncopal episode at home. Patient states that he "passed out for a second." Patient states he has had episodes of dizziness in the past several months. Patient denies dizziness since admission to [facility]. -BPs have been stable with BPs since admission 120-140s systolic. Orthostatic blood pressures obtained and are stable. -24 hour telemetry reviewed with episodes of nocturnal bradycardia. Lowest heart rate 34 at 0150. Longest pause 2.6 seconds. Average heart rate 63. Discussed and reviewed with Dr.John Arroyo. Patient states he has had a sleep study "several years ago." Patient states he was diagnosed with sleep apnea at that time, but he is non-compliant with CPAP due to comfort issues. Suspect nocturnal bradycardia due to sleep apnea. Recommend compliance with CPAP. -Echocardiogram 08/27/16 with mild diastolic dysfunction of left ventricle, no significant valvular dysfunction, no pulmonary hypertension, all wall segments with normal motion. -Carotid duplex 08/27/16 with nonstenotic plaque right bifurcation, nonstenotic plague right proximal ICA, nonstenotic plaque right mid ICA, nonstenotic plaque right ECA, nonstenotic plaque left bifurcation, nonstenotic plaque left proximal ICA, nonstenotic plaque left ECA. -Recommend patient compliance with CPAP. -Continue ranexa 500mg BID, as currently ordered by primary service. -If patient continues with dizziness, may consider decreasing patient's dose of imdur. -Discussed and reviewed with patient and Dr.John Arroyo. Cardiology will sign off. Re-consult as needed. Follow up coordinated with [facility]. Qualifiers: Syncope type: unspecified Qualified Code(s): R55 - Syncope and collapse (2) History of coronary artery disease Current Visit: Yes Status: Chronic Per cardiology: -Patient known history of CAD with previous stenting. 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 Patient denies chest pain. Patient states compliance with plavix, aspirin, ranexa, imdur. Patient states he does not tolerate beta roberto and susanna inhibitor. Patient states he has tried several varieties in the past, but does not tolerate them. -No further ischemic evaluation needed at this time due to chest pain free and troponins negative x3. (3) Smoking Current Visit: Yes Status: Chronic Per cardiology: -Patient is a known smoker of a pack per day for 30 years. Patient has no plans to quit smoking, but states he knows he needs to quit. -Smoking cessation given. Discussion w patient/family: The assessment and plan as outlined above was discussed with the patient who expressed understanding and agreement. All questions were answered. Thank you for involving us in the care of your patient. Please call with any questions. Patient was discussed and reviewed with Dr.John Arroyo. Subjective Principal diagnosis: Apparent Syncope Objective Vital Signs, Last 4 Hours Temp Pulse Resp BP Pulse Ox 08/28/16 07:00 97.8 F 89 16 123/71 92 L General: Conversant, No Apparent Distress HEENT: Atraumatic, Normocephaly, Mucus Membranes Moist Neck: No JVD Cardiac: Reg Rate and Rhythm, Normal S1 and S2, No Murmur Lungs: Other (Expiratory wheezing noted to bilateral lungs. ) Neuro: Alert and responsive Abdomen: Soft, Non-Tender Skin: No rashes noted on visualized skin Musculoskeletal: No Chest Wall Tenderness Extremities: No Clubbing, No Cyanosis, Normal Pulses, Other (Mild non-pitting pedal edema noted. ) Results 08/27/16 00:56 08/27/16 00:56 Lab Results 08/27/16 08:12 Troponin I 0.01 - Imaging and Cardiology Echo: report reviewed Other Results: CT head reviewed. Carotid duplex reviewed. - EKG Interpretation EKG results cardiology: normal ECG, sinus rhythm, other (24 hour telemetry noted with episodes of nocturnal bradycardia. Lowest heart rate 34 at 0150. Also had a 2.6 second pause at 0330. Average heart rate 63. Discussed with Dr.John Arroyo.) Consult Discharge Plan - Plan Referrals: Marybeth Myers MD [Primary Care Provider] - 09/05/16 10:45 am
--- NOTE | 2016-08-28 10:02 | Discharge Summary ---
Date of Encounter: 08/28/16 Time of Encounter: 09:00 - Discharge Diagnosis (1) Syncope Priority: Primary Status: Acute Comments: Patient remained asymptomatic throughout this admission. Syncopal workup negative. Suspect recent increase in his Ranexa dosage on 08/21/16 may have been the culprit. Changing back to his original dosing. Follow-up outpatient with cardiology 08/27/16 Patient alert and oriented 3 and asymptomatic on examination. Chest x-ray negative. Head CT negative. Carotid and echo still pending. Tox screen also pending. In discussing with the patient, he was started on Imdur couple months ago and his Ranexa dosage was increased last week. His syncopal episodes are likely medication related. We will also obtain orthostatic vital signs. We will bring cardiology on board for their appreciation of medications and any changes that may be indicated. ITS Impressions Chest X-Ray 08/26/16 18:22 IMPRESSION: 1. No active pulmonary disease. D/ / Tato Avelar MD / Tato Avelar MD Interpreting Provider: Tato Avelar MD Head CT 08/26/16 18:23 IMPRESSION: No acute intracranial abnormality. D/ / Jef Moore MD / Jef Moore MD Interpreting Provider: Jef Moore MD Qualifiers: Syncope type: unspecified Qualified Code(s): R55 - Syncope and collapse (2) Mental retardation Priority: Secondary Status: Chronic Comments: Patient was able to understand plan of care and answer questions appropriately regarding his medication and recent changes to his medications. (3) S/P thyroidectomy Priority: Secondary Status: Chronic Comments: TSH checked in June 2016, normal (4) DVT prophylaxis Priority: Primary Status: Acute Comments: Subcutaneous heparin while admitted (5) CAD (coronary artery disease) Priority: Secondary Status: Chronic Comments: Patient denied chest pain or shortness of breath throughout this admission Qualifiers: Coronary Disease-Associated Artery/Lesion type: [place] artery [place] vs. transplanted heart: [place] heart Associated angina: with stable angina Qualified Code(s): I25.118 - Atherosclerotic heart disease of [place] coronary artery with other forms of angina pectoris (6) Obesity (BMI 30.0-34.9) Priority: Secondary Status: Chronic - Discharge Medications Prescriptions: Ranolazine [Ranexa] 500 mg PO BID #60 tab.er.12h Home Medications: Aspirin [Adult Low Dose Aspirin EC] 81 mg PO DAILY 10/12/15 [History] Clopidogrel [Plavix] 75 mg PO DAILY 10/12/15 [History] Levothyroxine Sodium [Tirosint] 125 mcg PO DAILY 10/12/15 [History] Nitroglycerin 0.4 mg SL Q5MIN PRN 10/12/15 [History] RisperiDONE [Risperdal] 1 mg PO HS 10/12/15 [History] Aripiprazole [Abilify] 15 mg PO DAILY #30 tablet 06/05/16 [Rx] Atorvastatin Calcium [Lipitor] 80 mg PO HS #30 tab 06/05/16 [Rx] Isosorbide MONOnitrate (24 HR) [Imdur] 60 mg PO DAILY #60 tab.er.24h 06/05/16 [ Rx] Tizanidine HCl [Zanaflex] 4 mg PO Q8H #90 capsule 06/05/16 [Rx] Benztropine [Cogentin] 1 mg PO HS 08/27/16 [History] Ranitidine HCl [Heartburn Relief] 150 mg PO BID 08/27/16 [History] Ranolazine [Ranexa] 500 mg PO BID #60 tab.er.12h 08/28/16 [Rx] Allergies/Adverse Reactions: Allergies tramadol [From Ultram] Adverse Reaction (Verified 10/03/15 10:16) Nausea Procedures/tests Complete & Pending: Procedures Performed prior 72 hours Category Date Time Status ECG 12 lead ECG [ECG] AM 0600 Y 08/27/16 06:00 Ordered EV carotid duplex imaging BI Routine Y 08/27/16 00:20 Completed EV echocardiogram Routine Y 08/27/16 00:20 Completed Date of admission: 08/26/16 21:03 Primary care physician: Marybeth Myers Consults: 08/27/16 10:25 Consult to Cardiology [CONS] Routine Comment: Consulting Provider: Cardiology [place] Reason for Consult: here for syncope. recent addition of Imdur and increase in Ranexa Call Completed: No Discharging clinician: Chely Rodriguez Anticipated date of discharge: 08/28/16 - Patient Status Disposition: Home, Self-Care Condition: Good Functional capacity at discharge: independent ambulation Overall status at discharge: patient is back to baseline - Discharge Instructions Follow Up With: Marybeth Myers MD [Primary Care Provider] - 09/05/16 10:45 am Chu Headley MD [Partnered Physician] - Additional Instructions: Follow-up with primary care provider as scheduled. Follow-up with cardiology in 2-3 weeks - Diet and Activity Activity: increase activity as tolerated Diet: low fat, low cholesterol, low salt diet Hospital course: Mr. Rios is a 46 year old male with past medical history of CAD, kidney stones, chronic kidney disease, mild MRDD. Patient presented to the emergency department after having 2 syncopal episodes at home. One spell was reported as witnessed by his friend. Patient stating he had some tremors but no reported seizure activity. Workup in the emergency department unremarkable. Chest x- ray negative. Head CT negative. Patient was admitted to the hospitalist service for further evaluation and management. Carotid unremarkable. Echocardiogram unremarkable with ejection fraction of 60% and mild diastolic dysfunction. Patient was euvolemic on examination throughout this admission. He was also asymptomatic throughout this admission and denied dizziness, shortness of breath, lightheadedness. Tox screen positive for marijuana. 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 Strongly suspect this is the reasoning behind his syncopal episodes. He was placed back on his regular Ranexa dosage of 500 mg twice a day during this admission and he remained asymptomatic. Orthostatic vital signs were negative. Cardiology was brought on board during this admission and cleared him for outpatient follow-up. He was discharged home in stable condition with close outpatient follow-up recommended. ITS Impressions Chest X-Ray 08/26/16 18:22 IMPRESSION: 1. No active pulmonary disease. D/ / Tato Avelar MD / Tato Avelar MD Interpreting Provider: Tato Avelar MD Head CT 08/26/16 18:23 IMPRESSION: No acute intracranial abnormality. D/ / Jef Moore MD / Jef Moore MD Interpreting Provider: Jef Moore MD Echocardiogram impressions: LVEF 60%. Normal left ventricular size and systolic function. There is evidence of mild diastolic dysfunction of the left ventricle. Normal right ventricular size and function. No significant valvular dysfunction. No pulmonary hypertension. Carotid duplex impressions: Findings: bilateral carotid systems have nonstenotic plaque - Time Spent with Patient Total time spent providing and/or coordinating discharge services: - Constitutional Vitals: Temp Pulse Resp BP Pulse Ox 97.8 F 89 16 123/71 92 L 08/28/16 07:00 08/28/16 07:00 08/28/16 07:00 08/28/16 07:00 08/28/16 07:00 General appearance: Present: cooperative, A&O X 3, pleasant, no acute distress, answers questions appropriately - Head Head exam: Present: atraumatic, normocephalic - Eye Eye exam: Present: PERRL, conjuntiva pink, sclera anicteric Pupils: Present: PERRL - Neck Neck exam general surgery: Present: supple, trachea midline. Absent: lymphadenopathy - Respiratory Respiratory exam: Present: decreased breath sounds. Absent: accessory muscle use, rales, respiratory distress, rhonchi, wheezes - Cardiovascular Cardiovascular exam: Present: RRR, +S1, +S2. Absent: diastolic murmur, gallop, rubs, systolic murmur - GI/Abdominal GI/Abdominal exam: Present: normal bowel sounds, soft, no peritoneal signs. Absent: distended, tenderness - Extremities Exam Extremities exam: Present: warm, radial pulses palpable and symetrical. Absent : calf tenderness, cyanotic, pedal edema - Neurological Exam Neurological exam: Present: alert, CN II-XII intact, normal gait, oriented X3, no focal deficits, strengths equal and symetr throughout. Absent: pronater drift, facial droop, speech deficit - Skin Skin exam: Present: dry, intact, normal color, warm
[2016-08-28] MEDS: Isosorbide MONOnitrate (24 HR) 60 MG TAB.ER.24H PO SCH (10:05)
[2016-08-28] MEDS: Aspirin Enteric Coated 81 MG Tablet PO SCH (10:05)
[2016-08-28] MEDS: Ranolazine 500 MG TAB.ER.12H PO SCH (10:05)
== END 2016-08-28 11:20 | disposition home or self-care (01) ==
LOC: 3BNU 18:19 → EMEROO 18:19 → 3BNU 21:30
PROVIDERS: ADMIT Internal Medicine; ATTEND Nurse Practitioner Family